=== PATIENT | male | born 1995 | race Caucasian/White ===

== ENCOUNTER 2023-06-21 15:38 | Emergency (ER) | payer BC ==
[2023-06-21] MEDS ORDERED: Sodium Chloride 0.9% 10 ML Syringe FLUSH PRN (15:40)
[2023-06-21 15:52] LABS: BASOPHILS ABSOLUTE AUTO 0.02 10^3/uL (0.00-0.10); BASOPHILS PERCENT AUTO 0.3 % (0.0-1.0); EOSINOPHILS ABSOLUTE AUTO 0.02 10^3/uL (0.10-0.30); EOSINOPHILS PERCENT AUTO 0.3 % (1.0-3.0); HEMATOCRIT 49.4 % (40.0-52.0); HEMOGLOBIN 16.9 g/dL (13.0-17.0); IMMATURE GRAN ABSOLUTE AUTO 0.01 10^3/uL (0.00-0.50); IMMATURE GRAN PERCENT AUTO 0.2 % (0.0-5.0); LYMPHOCYTES ABSOLUTE AUTO 2.51 10^3/uL (1.00-4.00); LYMPHOCYTES PERCENT AUTO 43.3 % (20.0-40.0); MEAN CORPUSCULAR HEMOGLOBIN 29.7 pg (27.0-31.0); MEAN CORPUSCULAR HGB CONC 34.2 g/dL (32.0-36.0); MEAN CORPUSCULAR VOLUME 86.8 fL (82.0-92.0); MEAN PLATELET VOLUME 9.2 fL (7.4-10.4); MONOCYTES ABSOLUTE AUTO 0.85 10^3/uL (0.10-0.80); MONOCYTES PERCENT AUTO 14.7 % (2.0-8.0); NEUTROPHILS ABSOLUTE AUTO 2.39 10^3/uL (2.50-7.00); NEUTROPHILS PERCENT AUTO 41.2 % (50.0-70.0); PLATELET COUNT,PLT 250 10^3/uL (150-400); RED BLOOD CELL COUNT 5.69 10^6/uL (4.50-6.00); RED CELL DISTRIBUTION WIDTH 12.4 % (11.5-14.5)
[2023-06-21] MEDS: Sodium Chloride 0.9% 1,000 ML IV ONE (15:55)
[2023-06-21] MEDS: Ondansetron 4 MG/2 ML SDV IVPUSH ONE (15:58)
[2023-06-21 16:07] VITALS: BP 127/74; PULSE 80
[2023-06-21 16:08] LABS: ALBUMIN 4.48 g/dL (3.40-5.00); ANION GAP 25.7 mmol/L (5-15); BILIRUBIN TOTAL 0.6 mg/dL (0.2-1.0); CALCIUM 9.3 mg/dL (8.7-10.3); CARBON DIOXIDE,CO2 16.7 mmol/L (21.0-32.0); EST CRCL DRUG DOSING (CG) 112.54 mL/min; POTASSIUM,K 3.4 mmol/L (3.5-5.1); PROTEIN TOTAL,TP 8.5 g/dL (6.4-8.2)
[2023-06-21 16:11] LABS: LACTIC ACID 2.1 mmol/L (0.4-2.0)
[2023-06-21] MEDS: Albuterol/Ipratropium 3.0-0.5 MG/3 ML Neb Soln NEB ONE (16:12)
[2023-06-21 16:32] LABS: INFLUENZA A NAA NEGATIVE (NEGATIVE); INFLUENZA B NAA NEGATIVE (NEGATIVE); RESPIRATORY SYNCYTIAL VIR NAA NEGATIVE (NEGATIVE)
[2023-06-21 16:34] LABS: CORONAVIRUS COVID-19 NAA POSITIVE (NEGATIVE)
== END 2023-06-21 17:20 | disposition home or self-care (01) ==
LOC: KA.ED 15:38
DX: U07.1 COVID-19 (principal)
CPT/HCPCS: 0241U; 36415; 71045; 80053; 83605; 83735; 85025; 94640; 96361; 96374; 99284-25; J2405; J7030; J7620-GY